=== PATIENT | male | born 1995 | race Hispanic/Latino ===

== ENCOUNTER 2022-06-21 23:25 | Inpatient (IN) | payer OTHER ==
[~2022-06-21] VITALS: Ht 180.3 cm; Wt 95.4 kg
[2022-06-21] MEDS ORDERED: NS 1,000 ML IV ONE (23:55)
[2022-06-21] MEDS ORDERED: ONDANSETRON 4MG 2ML VIAL IV ONE (23:55)
[2022-06-22 00:28] LABS: ETHYL ALCOHOL (ETHANOL) 0.196 % (0.000-0.010)
[2022-06-22 00:29] LABS: ACETAMINOPHEN LEVEL < 2.0 UG/ML (10.0-20.0)
[2022-06-22 00:30] LABS: ALBUMIN 4.5 G/DL (3.2-5.2); ALKALINE PHOSPHATASE 49 U/L (46-116); ALT/SGPT 112 U/L (7.0-40); AST/SGOT 41 U/L (<34); BILIRUBIN,DIRECT 0.2 MG/DL (<0.4); BILIRUBIN,TOTAL 0.5 MG/DL (0.3-1.2); BLOOD UREA NITROGEN 10 MG/DL (9-23); CARBON DIOXIDE LEVEL 21 MMOL/L (20-31); CHLORIDE LEVEL 104 MMOL/L (98-107); CREATININE FOR GFR 0.79 MG/DL (0.70-1.30); GLOMERULAR FILTRATION RATE > 60.0 (>60); GLUCOSE, FASTING 88 MG/DL (60-100); POTASSIUM SERUM 3.8 MMOL/L (3.5-5.1); SALICYLATE LEVEL < 3.0 MG/DL (<30); SODIUM LEVEL 139 MMOL/L (136-145); TOTAL PROTEIN 7.3 G/DL (5.7-8.2)
[2022-06-22 00:32] LABS: THYROID STIMULATING HORMONE 3.192 uIU/ML (0.55-4.78)
[2022-06-22 00:38] LABS: BASO # 0.1 10^3/uL (0.0-0.2); BASO % 0.9 % (0.0-1.0); EOS # 0.2 10^3/uL (0.0-0.5); EOS % 2.7 % (0.0-3.0); HEMATOCRIT 48.6 % (42.0-52.0); HEMOGLOBIN 17.2 g/dl (13.5-17.5); LYMPH # 2.1 10^3/uL (1.5-5.0); LYMPH % 25.5 % (24.0-44.0); MEAN CORPUSCULAR HEMOGLOBIN 31.4 pg (27.0-33.0); MEAN CORPUSCULAR HGB CONC 35.4 g/dl (32.0-36.5); MEAN CORPUSCULAR VOLUME 88.8 fl (80.0-96.0); MONO # 0.7 10^3/uL (0.0-0.8); MONO % 8.5 % (2.0-8.0); NEUTROPHILS % 61.5 % (36.0-66.0); PLATELET COUNT, AUTOMATED 297 10^3/uL (150-450); RED BLOOD COUNT 5.47 10^6/uL (4.30-6.10); WHITE BLOOD COUNT 8.1 10^3/uL (4.0-10.0)
[2022-06-22 00:39] LABS: AMPHETAMINES LEVEL URINE NEGATIVE (NEGATIVE); BARBITURATES URINE NEGATIVE (NEGATIVE); BENZODIAZEPINES URINE NEGATIVE (NEGATIVE); CANNABINOIDS URINE NEGATIVE (NEGATIVE); COCAINE METABOLITE URINE NEGATIVE (NEGATIVE); METHADONE URINE NEGATIVE (NEGATIVE); OPIATES URINE NEGATIVE (NEGATIVE); PHENCYCLIDINE URINE NEGATIVE (NEGATIVE)
[2022-06-22] MEDS ORDERED: HOME MED LIST COMPLETE! XX SCH (04:00)
[2022-06-22] MEDS ORDERED: D5W/0.45% SODIUM CHLORIDE 1,000 ML IV ONE (06:55)
[2022-06-22] MEDS ORDERED: fentaNYL 100 MCG/2 ML INJECTION As Ordered ONE (08:14)
[2022-06-22] MEDS ORDERED: propofoL 200 MG/20 ML VIAL As Ordered ONE (08:14)
[2022-06-22] MEDS ORDERED: LIDOCAINE 2% 100MG/5ML SDV (FOR ANES.) As Ordered ONE (08:14)
[2022-06-22] MEDS ORDERED: MOM 30ML SUSPENSION UDC PO PRN (12:50)
[2022-06-22] MEDS ORDERED: MAALOX 30 ML SUSP *UDC PO PRN (12:50)
[2022-06-22] MEDS ORDERED: traZODone 50 MG TAB PO PRN (12:50)
[2022-06-22] MEDS ORDERED: OLANZapine ORAL DISINTEGRATING TAB 5MG PO PRN (12:50)
[2022-06-22] MEDS ORDERED: ACETAMINOPHEN TAB 650MG DOSE (2X325MG) PO PRN (12:50)
[2022-06-22 15:38] VITALS: BP 137/73
[2022-06-23 06:34] VITALS: BP 140/88
[2022-06-23] MEDS: OMEPRAZOLE 20MG CAP PO SCH (14:49)
[2022-06-23 16:28] VITALS: BP 115/70
[2022-06-23] MEDS: SUCRALFATE 1 GM TAB PO SCH (17:15)
[2022-06-24 06:58] VITALS: BP 140/86
[2022-06-24] MEDS: OMEPRAZOLE 20MG CAP PO SCH (07:30)
[2022-06-24] MEDS: SUCRALFATE 1 GM TAB PO SCH ×2 (07:30→17:22)
[2022-06-24 16:54] VITALS: BP 130/74
[2022-06-25 07:06] VITALS: BP 127/72
[2022-06-25] MEDS: OMEPRAZOLE 20MG CAP PO SCH (09:50)
[2022-06-25] MEDS: SUCRALFATE 1 GM TAB PO SCH ×2 (09:51→17:50)
[2022-06-25] MEDS: ESCITALOPRAM OXALATE 5MG TABLET (LEXAPRO) PO SCH (11:18)
[2022-06-25 18:00] VITALS: BP 126/69
[2022-06-26 06:27] VITALS: BP 112/67
[2022-06-26] MEDS: SUCRALFATE 1 GM TAB PO SCH (07:47)
[2022-06-26] MEDS: OMEPRAZOLE 20MG CAP PO SCH (07:47)
[2022-06-26] MEDS: ESCITALOPRAM OXALATE 5MG TABLET (LEXAPRO) PO SCH (07:48)
[2022-06-26] MEDS ORDERED: LEXA5TAB13 PO (09:04)
[2022-06-26] MEDS ORDERED: SUCR1TA PO (09:04)
[2022-06-26] MEDS ORDERED: OMEP-173 PO (09:04)
== END 2022-06-26 10:40 | disposition home or self-care (01) | DRG 880 ==
LOC: M ED 23:25 → EDBD 23:25 → M ED INP 06-22 12:46 → M PSY 06-22 14:43
PROVIDERS: ADMIT Psychiatry & Neurology Psychiatry; ATTEND Student in an Organized Health Care Education/Training Program
PROC: 0DJ08ZZ Inspection of Upper Intestinal Tract, Via Natural or Artificial Opening Endoscopic (ICD-10-PCS; principal; 2022-06-22 07:37)
DX: F41.0 Panic disorder [episodic paroxysmal anxiety] (principal); F10.10 Alcohol abuse, uncomplicated

== ENCOUNTER 2022-09-22 05:31 | Emergency (ER) | payer OTHER ==
[~2022-09-22] VITALS: Ht 180.3 cm; Wt 94.2 kg
[~2022-09-22 05:31] MED LIST: LEXA5TAB13 PO; OMEP-173 PO; SUCR1TA PO
[2022-09-22] MEDS ORDERED: NEOSPORIN OINT 0.9 GM PKT TOP ONE (06:15)
[2022-09-22] MEDS ORDERED: LIDOCAINE 2% MDV 20ML VIAL SC ONE (06:15)
[2022-09-22] MEDS ORDERED: CEPHALEXIN 500 MG CAP PO ONE (07:10)
[2022-09-22] MEDS ORDERED: CEPH500C PO ×2 (07:12→07:15)
[2022-09-22] MEDS ORDERED: BACI500O8 TOP (07:15)
[2022-09-22 07:50] VITALS: BP 120/69; TEMP 98; O2SAT 100
== END 2022-09-22 08:01 | disposition home or self-care (01) ==
LOC: EDBD 05:31 → M ED 05:31
DX: S61.011A Laceration without foreign body of right thumb without damage to nail, initial encounter (principal); Y28.0XXA Contact with sharp glass, undetermined intent, initial encounter; Y92.009 Unspecified place in unspecified non-institutional (private) residence as the place of occurrence of the external cause; Y93.89 Activity, other specified; Y99.8 Other external cause status; Z79.899 Other long term (current) drug therapy; F17.200 Nicotine dependence, unspecified, uncomplicated; K21.9 Gastro-esophageal reflux disease without esophagitis; F41.9 Anxiety disorder, unspecified